=== PATIENT | male | born 1955 | race Caucasian/White ===

== ENCOUNTER 2016-07-20 13:23 | Outpatient (CLI) ==
[2013-12-26 01:06] VITALS: BMI 34.4
[2016-07-20 17:09] LABS: FLU INTERNAL QC INTERNAL QC VALID; RAPID FLU A NEGATIVE (NEGATIVE); RAPID FLU B NEGATIVE (NEGATIVE)
== END 2016-07-20 13:24 | disposition home or self-care (01) ==
LOC: LAB 13:23
PROVIDERS: ATTEND Nurse Practitioner Family
DX: R52 Pain, unspecified (principal); R68.83 Chills (without fever)
CPT/HCPCS: 87651; 87804; 87880

== ENCOUNTER 2017-03-06 12:53 | Emergency (ER) ==
[2017-03-06] MEDS ORDERED: LIDOCAINE 1% 2ML (SURGERY ONLY) INJ STA (12:55)
[2017-03-06 12:56] VITALS: BP 145/81; TEMP 98.1; BMI 33.0
[2017-03-06] MEDS ORDERED: TETANUS DIPHTHERIA TOXOIDS IM ONE (12:59)
--- NOTE | 2017-03-06 13:12 | ED.PDOC ---
General ED Provider: Dr. EDMAR BEAL-ER Chief Complaint: Finger Laceration Stated Complaint: i was cutting onions and i cut the tip of my thumb Time Seen by Physician: 12:55 Mode of Arrival: Walk-In Information Source: Patient Exam Limitations: No limitations Nursing and Triage Documentation Reviewed and Agree: Yes Skin Complaint Exam - Laceration/Abrasion/Hand Complaint/Exam Location of Injury: Left, Digit #1 Mechanism of Injury: Laceration Onset/Duration: 30 min Symptoms Are: Still present Initial Severity: Mild Current Severity: Mild Aggravating: Movement Alleviating: Compression Associated Signs and Symptoms: Denies: Fever, Chills, Erythema, Numbness, Tingling Differential Diagnoses: Avulsion Review of Systems - Review Of Systems Constitutional: Reports: No symptoms Eyes: Reports: No symptoms Ears, Nose, Mouth, Throat: Reports: No symptoms Respiratory: Reports: No symptoms Cardiac: Reports: No symptoms GI: Reports: No symptoms : Reports: No symptoms Musculoskeletal: Reports: No symptoms Skin: Reports: No symptoms Neurological: Reports: No symptoms Endocrine: Reports: No symptoms Hematologic/Lymphatic: Reports: No symptoms All Other Systems: Reviewed and Negative Past Medical History - Past Medical History Previously Healthy: Yes Endocrine: Reports: Unknown Cardiovascular: Reports: Unknown Respiratory: Reports: Unknown Hematological: Reports: Unknown Gastrointestinal: Reports: Unknown Genitourinary: Reports: Unknown Neuro/Psych: Reports: Unknown Musculoskeletal: Reports: Unknown Cancer: Reports: Unknown - Surgical History General Surgical History: Reports: Unknown - Family History Family History: Reports: Unknown - Social History Smoking Status: Never smoker Hx Substance Use: No Alcohol Screening: Occasionally - Immunizations Tetanus Shot up to Date: No Physical Exam - Physical Exam Appearance: Well-appearing, No pain distress, Well-nourished Eyes: [place], EOMI, Conjunctiva clear ENT: Ears normal, Nose normal, Oropharynx normal Neck: Supple Respiratory: Airway patent, Breath sounds clear, Breath sounds equal, Respirations nonlabored Cardiovascular: RRR, Pulses normal, No rub, No murmur GI/: Soft, Nontender, No masses, Bowel sounds normal, No Organomegaly Musculoskeletal: Normal strength, ROM intact, No edema, No calf tenderness Skin: Warm (noted small 0.5cm avulsion tip of left thumb), Dry, Normal color Neurological: Sensation intact, Motor intact, Reflexes intact, Cranial nerves intact, Alert, Oriented Psychiatric: Affect appropriate, Mood appropriate Re-Evaluation - Re-Evaluation Time of Re-Evaluation: 13:12 Status: Improved Vital Signs Stable: Yes Pain Level: 1 Appearance: NAD Lungs: Clear Skin: Warm and Dry Neuro: Alert and Oriented X3 CV: RRR Additional Comments: the avulsion had surgicel applied and then sterile dressing applied Critical Care Note - Critical Care Note Total Time (mins): 0 Course - Course Orders, Labs, Meds: Orders Category Date Time Status Lidocaine HCl [Lidocaine 1% 2Ml (Surgery Only)] MEDS 03/06/17 12:55 Discontinued 2 ml INJ ONCE STA Tetanus, Diphtheria Tox,Adult [Tetanus Diphtheria MEDS 03/06/17 12:59 Discontinued Toxoids] 0.5 ml IM .ONCE ONE Medications Discontinued Medications Generic Name Dose Route Start Last Admin Trade Name Freq PRN Reason Stop Dose Admin Lidocaine HCl 2 ml 03/06/17 12:55 Lidocaine 1% 2ml (Surgery Only) INJ 03/06/17 12:56 ONCE STA Tetanus/Diphtheria Toxoids 0.5 ml 03/06/17 12:59 03/06/17 13:06 Tetanus Diphtheria Toxoids IM 03/06/17 13:00 0.5 ml .ONCE ONE Administration Vital Signs: Temp Pulse Resp BP Pulse Ox 03/06/17 12:54 98.1 F 79 16 145/81 H 98 Departure - Departure Time of Disposition: 13:13 Disposition: HOME SELF-CARE Discharge Problem: Avulsion of skin of left thumb Qualifiers: Encounter type: initial encounter Qualified Code(s): S61.002A - Unspecified open wound of left thumb without damage to nail, initial encounter Instructions: Skin Avulsion (ED) Condition: Good Pt referred to PMD for follow-up: Yes Additional Instructions: keep skin clean and dry--wash daily with soap till healed--can use triple antibiotic cream till healed Allergies/Adverse Reactions: Allergies Sulfa (Sulfonamide Antibiotics) Adverse Reaction (Verified 03/06/17 12:56) Home Medications: Ambulatory Orders Citalopram Hydrobromide [Celexa] 20 mg PO DAILY 06/28/13 Meloxicam [Mobic] 7.5 mg PO BID PRN 06/28/13 Disposition Discussed With: Patient
== END 2017-03-06 13:55 | disposition home or self-care (01) ==
LOC: ED 12:53
DX: S61.002A Unspecified open wound of left thumb without damage to nail, initial encounter (principal); W26.0XXA Contact with knife, initial encounter
CPT/HCPCS: 90471; 90714; 99283

== ENCOUNTER 2017-05-24 09:16 | Outpatient (CLI) | END 2017-05-24 09:17 | disposition home or self-care (01) | LOC: LAB 09:16 | PROVIDERS: ATTEND Family Medicine | DX: Z01.812 Encounter for preprocedural laboratory examination (principal) | CPT/HCPCS: 36415; 82565 ==

== ENCOUNTER 2017-05-30 12:26 | Outpatient (CLI) ==
--- NOTE | 2017-05-30 21:32 | MRI ---
EXAM: Lumbar spine MRI with and without contrast. HISTORY: Lumbar radiculopathy. COMPARISON: Lumbar spine radiographs 04/21/2011. TECHNIQUE: Multiplanar, multisequence MR images were acquired of the lumbar spine before and after a dministration of intravenous contrast. FINDINGS: Five non-rib bearing lumbar vertebra are present. There is mild lumbar levoscoliosis cent ered at L3-4 and there is 3 mm leftward translation of L3 with respect to L2. Intrinsic bone marrow signal is normal. There is disc desiccation and mild disc space narrowing at L2-3. There are chroni c biconcave endplates at L2 and there is mild chronic anterior and right lateral wedging of L3 unchan ged from the previous lumbar spine radiographs. There is 2 mm retrolisthesis of L2 on L3 and there a re postoperative changes of a posterior longitudinal interbody fusion from L3-S1. Metallic artifact is present consistent with anterior interbody grafts/cages at L3-4, L4-5 and L5-S1 and paired posteri or fixation rods and bipedicular screws from L3-S1. Conus medullaris ends at L1-2 and has normal con figuration and signal intensity. There is no abnormal leptomeningeal contrast enhancement. The partially visualized liver, spleen and left kidney are unremarkable. A partially visualized prob ably simple right renal parapelvic cyst is present. There are no paravertebral masses. T12-L1: The intervertebral disc is normal. L1-2: The intervertebral disc is normal. L2-3: There is a mild disc bulge with marginal osteophytes that effaces the ventral thecal sac and n arrows the inferior neural foramina bilaterally. There is a small superimposed right paracentral dis c protrusion that minimally effaces the ventral thecal sac. There is mild bilateral facet and ligame ntum flavum hypertrophy. Mildly prominent dorsal epidural fat is present and there is mild to modera te central canal stenosis, mild left and moderate right neural foraminal stenosis with encroachment o n the traversing right L2 nerve. AP diameter of the thecal sac is 7.5 mm. L3-4: There are postoperative anterior discectomy and interbody fusion and posterior spinal fusion c hanges. Right lateral endplate osteophytes narrow the anterior inferior right neural foramen and the re is residual mild bilateral facet hypertrophy. There is mild to moderate bilateral neural foramina l stenosis, greater on the right. There is no central canal stenosis. L4-5: There are postoperative anterior discectomy and interbody fusion, partial bilateral medial fac etectomy and posterior spinal fusion changes. Bilateral lateral endplate osteophytes and residual bi lateral facet hypertrophy is present. There is mild to moderate right and moderate left neural jordyn inal stenosis with mild compression of the left L4 nerve. There is no central canal stenosis. L5-S1: There are postoperative anterior discectomy and interbody fusion, partial bilateral medial fa cetectomy and posterior spinal fusion changes. Bilateral lateral endplate osteophytes are present, gr eater on the left and there is residual bilateral facet hypertrophy. Chronic bilateral L5 pars inter articularis defects are noted which may be developing ankylosis. There is mild to moderate right carmen ral foraminal stenosis with mild compression of the traversing right L4 nerve and there is moderate l eft neural foraminal stenosis with compression of the left L4 nerve. There is no central canal stenos is. IMPRESSION: 1. Status post L3-S1 PLIF without central canal stenosis. 2. Mild disc bulge L2-3 with small right paracentral disc protrusion and mild to moderate central ca nal stenosis. 3. Moderate right L2-3 neural foraminal stenosis with compression of the right L2 nerve, mild to mod erate left L3-4 neural foraminal stenosis with compression of the left L3 nerve, moderate left L4-5 n eural foraminal stenosis with compression of the left L4 nerve and bilateral neural foraminal stenosi s L5-S1 with compression of both L5 nerves.
== END 2017-05-30 12:27 | disposition home or self-care (01) ==
LOC: RAD 12:26
PROVIDERS: ATTEND Family Medicine
DX: M54.16 Radiculopathy, lumbar region (principal)